=== PATIENT | female | born 1960 | race Caucasian/White ===

== ENCOUNTER → 2019-08-11 | Outpatient (CLI) | payer OTHER ==
--- NOTE | 2019-08-11 08:59 | CT ---
EXAMINATION TYPE: CT urogram wo/w con DATE OF EXAM: 08/11/2019 COMPARISON: None HISTORY: 58-year-old female with history of Bladder CA TECHNIQUE: Contiguous axial scanning of the abdomen and pelvis performed without and with IV Contrast , patient injected with 100 mL of Isovue 300. Delayed images through the kidneys and bladder were obt ained. Coronal/sagittal reconstructions performed. Reconstructions generated on a dedicated [employer] workstation. CT DLP: 3822.2 mGycm Automated exposure control for dose reduction was used. FINDINGS: Heart normal size without pleural effusion. Lung bases clear without pleural effusion. No focal liver lesion or biliary ductal dilatation. Portal venous system is patent. Cholecystectomy clips. Right adrenal gland, spleen, and pancreas appear within normal limits. 8 mm nodule of the left adrenal gland too small for accurate CT characterization. Focal lesion situated above the third portion of the duodenum in the mid abdominal retroperitoneum me asuring 2.9 cm wide and 3.6 cm cranial caudal shows fluid attenuation and no significant enhancement. Either a foregut/mesenteric duplication cyst, lymphangioma, or a duodenal diverticulum. Kidneys show no evidence for nephrolithiasis or hydronephrosis. No suspicious filling defects seen wi thin the bilateral renal collecting systems. However, the proximal third of the right ureter remains nonopacified and is not adequately evaluated. The left ureter shows no suspicious filling defect. The mid and distal third right ureter shows no suspicious filling defect. There is a 1.2 cm cortical hypodensity lateral mid to lower pole right kidney, likely cyst. No suspic ious renal mass is seen. No dilated small bowel, free fluid, or free air. A few borderline enlarged gastrohepatic ligament lymph nodes measuring up to 9 mm. Upper aortocaval lymph node measures 9 mm in the retroperitoneum. Right-sided mesenteric lymph node measures up to 7 mm on axial image 54 and coronal image 73. There is a heterogeneous soft tissue nodule in the left mesentery measuring 1.3 x 0.9 cm, and axial i mage 52. Additional small peritoneal nodule measuring 5 mm just adjacent, axial image 55. Normal appendix. Scattered [id number] stool. No pericolonic inflammatory change. On the delayed kidney images, the posterior one third of the bladder is opacified and shows no suspic ious mural based filling defect. More limited assessment of the anterior two thirds of the bladder. Uterus anteverted. Both ovaries are visualized. No abnormal fluid collection the pelvis. Bilateral external iliac chain lymph nodes are borderline in size measuring up to 9 mm on either side . Bones: Mild degenerative changes of the hips. Facet arthropathy mid to lower lumbar spine with grade 1 anterolisthesis at L4-L5. Degenerative disc disease thoracolumbar junction and upper lumbar spine. IMPRESSION: 1. NO SUSPICIOUS FILLING DEFECT WITHIN THE RENAL COLLECTING SYSTEMS. THE PROXIMAL THIRD RIGHT URETER REMAINS NONOPACIFIED AND IS NOT OPTIMALLY ASSESSED. THE REMAINDER OF THE URETERS SHOW NO SUSPICIOUS F ILLING DEFECT. 2. NO NEPHROLITHIASIS OR HYDRONEPHROSIS. A 1.2 CM CORTICAL HYPODENSITY IN THE RIGHT KIDNEY LIKELY REP RESENTS A CYST. NO SUSPICIOUS RENAL MASS. 3. THE POSTERIOR THIRD OF THE BLADDER OPACIFIES WITH CONTRAST AND SHOWS NO SUSPICIOUS MURAL-BASED LES ION. LIMITED ASSESSMENT OF THE ANTERIOR TWO THIRDS OF THE BLADDER. 4. THERE IS A SUSPICIOUS 1.3 X 0.9 CM SOFT TISSUE NODULE IN THE LEFT MESENTERY FOR WHICH METASTATIC D EPOSIT NEEDS TO BE EXCLUDED. 5. IN ADDITION, BORDERLINE ENLARGED GASTROHEPATIC LIGAMENT LYMPH NODES MEASURING 9 MM ARE NONSPECIFIC AND SHOULD ALSO BE REASSESSED AT FOLLOW-UP. 6. A FEW SCATTERED MESENTERIC LYMPH NODES AND EXTERNAL ILIAC CHAIN LYMPH NODES ARE BORDERLINE IN SIZE MEASURING UP TO 7 MM AND 9 MM, RESPECTIVELY. ATTENTION ON FOLLOW-UP.
== END ==
LOC: RADCTMAIN 06:05
PROVIDERS: ATTEND Family Medicine
DX: C67.2 Malignant neoplasm of lateral wall of bladder (principal); R59.0 Localized enlarged lymph nodes
CPT/HCPCS: 74178; 74400; Q9967

== ENCOUNTER 2022-07-14 13:24 | Observation (INO) | payer OTHER ==
[2022-07-14] MEDS ORDERED: IPRATROPIUM-ALBUTEROL 3 ML NEB INHALATION STA (14:02)
--- NOTE | 2022-07-14 14:22 | ED ---
General Adult HPI - General Chief complaint: Chest Pain Stated complaint: SOB/Chest Pain Time Seen by Provider: 07/14/22 13:55 Source: patient, RN notes reviewed, old records reviewed Mode of arrival: wheelchair Limitations: no limitations - History of Present Illness Initial comments: This is a 61-year-old female presents emergency Department complaints of chest pain and difficulty breathing intermittently for a week. Patient denies any fever chills or cough. Patient states the symptoms are exacerbated by exertion. Patient states she's also noticed more swelling in both of her legs. Patient states the pain radiates around to her back. Patient denies any nausea. Patient states she does have a history of high blood pressure but hasn't taken it for a week and she has no access to her medications. Patient denies any abdominal pain patient denies nausea or diarrhea. - Related Data Home Medications Medication Instructions Recorded Confirmed Acetaminophen Tab [Tylenol Tab] 1,000 mg PO Q6HR PRN 07/14/22 07/14/22 Albuterol Inhaler [Ventolin Hfa 2 puff INHALATION RT-QID PRN 07/14/22 07/14/22 Inhaler] Gabapentin [Neurontin] 400 mg PO TID 07/14/22 07/14/22 Losartan Potassium [Cozaar] 25 mg PO DAILY 07/14/22 07/14/22 PARoxetine HCL [Paxil] 60 mg PO DAILY 07/14/22 07/14/22 Propranolol [Inderal] 40 mg PO BID 07/14/22 07/14/22 Qvar (Unknown Dose) 1 dose INHALATION DIRECTED 07/14/22 07/14/22 Allergies Allergy/AdvReac Type Severity Reaction Status Date / Time Sulfa (Sulfonamide Allergy Rash/Hives Verified 07/14/22 17:18 Antibiotics) Review of Systems ROS Statement: Those systems with pertinent positive or pertinent negative responses have been documented in the HPI. ROS Other: All systems not noted in ROS Statement are negative. Past Medical History Past Medical History: Atrial Fibrillation, Cancer, Heart Failure, Hypertension Additional Past Medical History / Comment(s): bladder ca History of Any Multi-Drug Resistant Organisms: None Reported Past Surgical History: Cholecystectomy Additional Past Surgical History / Comment(s): left rotator cuff. bladder ca finger amputation Past Psychological History: Anxiety, Bipolar, Depression, Panic Disorder Smoking Status: Current every day smoker Past Alcohol Use History: None Reported Past Drug Use History: None Reported General Exam - General Exam Comments Initial Comments: GENERAL: Patient is well-developed and well-nourished. Patient is nontoxic and well- hydrated and is in no acute distress. ENT: Neck is soft and supple. No significant lymphadenopathy is noted. Oropharynx is clear. Moist mucous membranes. Neck has full range of motion without eliciting any pain. EYES: The sclera were anicteric and conjunctiva were pink and moist. Extraocular movements were intact and pupils were equal round and reactive to light. Eyelids were unremarkable. PULMONARY: Unlabored respirations. Good breath sounds bilaterally. No audible rales rhonchi or wheezing was noted. CARDIOVASCULAR: There is a regular rate and rhythm without any murmurs gallops or rubs. ABDOMEN: Soft and nontender with normal bowel sounds. No palpable organomegaly was noted. There is no palpable pulsatile mass. SKIN: Skin is clear with no lesions or rashes and otherwise unremarkable. NEUROLOGIC: Patient is alert and oriented x3. Cranial nerves II through XII are grossly intact. Motor and sensory are also intact. Normal speech, volume and content. Symmetrical smile. MUSCULOSKELETAL: Normal extremities with adequate strength and full range of motion. 1+ edema bilaterally LYMPHATICS: No significant lymphadenopathy is noted PSYCHIATRIC: Normal psychiatric evaluation. Limitations: no limitations Course Vital Signs 07/14/22 07/14/22 07/14/22 13:39 14:13 14:44 Temperature 98.4 F Pulse Rate 95 80 78 Respiratory 20 18 18 Rate Blood Pressure 170/89 169/91 O2 Sat by Pulse 96 96 Oximetry 07/14/22 07/14/22 14:54 15:00 Temperature Pulse Rate 80 Respiratory 17 18 Rate Blood Pressure O2 Sat by Pulse Oximetry Medical Decision Making - Medical Decision Making EKG shows sinus rhythm at [address] interval 157 cardiac is 102 QT interval is 470 QTC is 447. Patient's EKG shows no ST segment elevation or depression. Chest x-ray shows no acute abnormality. I spoke with Dr. Santana she agreed to admit the patient admitted the patient wrote admitting orders. I consult cardiology - Lab Data Result diagrams: 07/14/22 14:15 07/14/22 14:15 Lab Results 07/14/22 07/14/22 07/14/22 Range/Units 14:15 14:15 14:15 WBC 5.2 (3.8-10.6) k/uL RBC 4.19 (3.80-5.40) m/uL Hgb 13.8 (11.4-16.0) gm/dL Hct 40.0 (34.0-46.0) % MCV 95.6 (80.0-100.0) fL MCH 32.9 (25.0-35.0) pg MCHC 34.4 (31.0-37.0) g/dL RDW 13.1 (11.5-15.5) % Plt Count 142 L (150-450) k/uL MPV 7.7 Neutrophils % 53 % Lymphocytes % 35 % Monocytes % 6 % Eosinophils % 3 % Basophils % 1 % Neutrophils # 2.8 (1.3-7.7) k/uL Lymphocytes # 1.9 (1.0-4.8) k/uL Monocytes # 0.3 (0-1.0) k/uL Eosinophils # 0.2 (0-0.7) k/uL Basophils # 0.0 (0-0.2) k/uL PT 13.1 H (9.0-12.0) sec INR 1.2 H (<1.2) APTT 28.2 (22.0-30.0) sec Sodium 139 (137-145) mmol/L Potassium 3.3 L (3.5-5.1) mmol/L Chloride 104 (98-107) mmol/L Carbon Dioxide 25 (22-30) mmol/L Anion Gap 10 mmol/L BUN 11 (7-17) mg/dL Creatinine 0.70 (0.52-1.04) mg/dL Est GFR (CKD-EPI)AfAm >90 (>60 ml/min/1.73 sqM) Est GFR (CKD-EPI)NonAf >90 (>60 ml/min/1.73 sqM) Glucose 133 H (74-99) mg/dL Calcium 8.6 (8.4-10.2) mg/dL Magnesium 1.7 (1.6-2.3) mg/dL Total Bilirubin 1.6 H (0.2-1.3) mg/dL AST 180 H (14-36) U/L ALT 107 H (4-34) U/L Alkaline Phosphatase 166 H (38-126) U/L Troponin I (0.000-0.034) ng/mL NT-Pro-B Natriuret Pep pg/mL Total Protein 8.4 H (6.3-8.2) g/dL Albumin 3.9 (3.5-5.0) g/dL 07/14/22 07/14/22 Range/Units 14:15 14:15 WBC (3.8-10.6) k/uL RBC (3.80-5.40) m/uL Hgb (11.4-16.0) gm/dL Hct (34.0-46.0) % MCV (80.0-100.0) fL MCH (25.0-35.0) pg MCHC (31.0-37.0) g/dL RDW (11.5-15.5) % Plt Count (150-450) k/uL MPV Neutrophils % % Lymphocytes % % Monocytes % % Eosinophils % % Basophils % % Neutrophils # (1.3-7.7) k/uL Lymphocytes # (1.0-4.8) k/uL Monocytes # (0-1.0) k/uL Eosinophils # (0-0.7) k/uL Basophils # (0-0.2) k/uL PT (9.0-12.0) sec INR (<1.2) APTT (22.0-30.0) sec Sodium (137-145) mmol/L Potassium (3.5-5.1) mmol/L Chloride (98-107) mmol/L Carbon Dioxide (22-30) mmol/L Anion Gap mmol/L BUN (7-17) mg/dL Creatinine (0.52-1.04) mg/dL Est GFR (CKD-EPI)AfAm (>60 ml/min/1.73 sqM) Est GFR (CKD-EPI)NonAf (>60 ml/min/1.73 sqM) Glucose (74-99) mg/dL Calcium (8.4-10.2) mg/dL Magnesium (1.6-2.3) mg/dL Total Bilirubin (0.2-1.3) mg/dL AST (14-36) U/L ALT (4-34) U/L Alkaline Phosphatase (38-126) U/L Troponin I <0.012 (0.000-0.034) ng/mL NT-Pro-B Natriuret Pep 32 pg/mL Total Protein (6.3-8.2) g/dL Albumin (3.5-5.0) g/dL Disposition Clinical Impression: Chest pain, Dyspnea Disposition: ADMITTED IP TO THIS HOSP Referrals: None,Stated [Primary Care Provider] - 1-2 days Time of Disposition: 17:40
[2022-07-14 14:35] LABS: Basophils % (A) 1 %; Eosinophils # (A) 0.2 k/uL (0-0.7); Eosinophils % (A) 3 %; HGB 13.8 gm/dL (11.4-16.0); Lymphocytes # (A) 1.9 k/uL (1.0-4.8); Lymphocytes % (A) 35 %; MCH 32.9 pg (25.0-35.0); MCHC 34.4 g/dL (31.0-37.0); MCV 95.6 fL (80.0-100.0); Mean Platelet Volume 7.7; Monocytes # (A) 0.3 k/uL (0-1.0); Monocytes % (A) 6 %; Neutrophils # (A) 2.8 k/uL (1.3-7.7); Neutrophils % (A) 53 %; Platelet Count 142 k/uL (150-450); RBC 4.19 m/uL (3.80-5.40); RDW 13.1 % (11.5-15.5); WBC 5.2 k/uL (3.8-10.6)
[2022-07-14 14:45] LABS: ALT 107 U/L (4-34); AST 180 U/L (14-36); African American GFR (CKD) >90 (>60 ml/min/1.73 sqM); Albumin 3.9 g/dL (3.5-5.0); Alkaline Phosphatase 166 U/L (38-126); Anion Gap 10 mmol/L; Blood Urea Nitrogen 11 mg/dL (7-17); Calcium 8.6 mg/dL (8.4-10.2); Carbon Dioxide 25 mmol/L (22-30); Chloride 104 mmol/L (98-107); Glucose 133 mg/dL (74-99); Magnesium 1.7 mg/dL (1.6-2.3); Non-African American GFR(CKD) >90 (>60 ml/min/1.73 sqM); Potassium 3.3 mmol/L (3.5-5.1); Sodium 139 mmol/L (137-145); Total Bilirubin 1.6 mg/dL (0.2-1.3); Total Protein 8.4 g/dL (6.3-8.2)
--- NOTE | 2022-07-14 14:48 | XR ---
EXAMINATION TYPE: XR chest 2V DATE OF EXAM: 07/14/2022 COMPARISON: Chest x-ray 07/23/2012 HISTORY: Difficulty breathing, chest pain and shortness of breath TECHNIQUE: Frontal and lateral views of the chest are obtained. FINDINGS: There is no focal air space opacity, pleural effusion, or pneumothorax seen. The cardiac silhouette size is within normal limits. There are overlying leads. Linear probable scarring present at the left costophrenic angle level. The osseous structures are intact. IMPRESSION: There may be some minimal basilar atelectasis or scarring
[2022-07-14 14:55] LABS: INR 1.2 (<1.2); Partial Thromboplastin Time 28.2 sec (22.0-30.0); Prothrombin Time 13.1 sec (9.0-12.0)
[2022-07-14 15:36] VITALS: RESP 18
--- NOTE | 2022-07-14 16:28 | US ---
EXAMINATION TYPE: US gallbladder DATE OF EXAM: 07/14/2022 COMPARISON: NONE CLINICAL HISTORY: 61-year-old female Elevated liver enzymes. Elevated LFT's, GB removed TECHNIQUE: Multiple sonographic images of the right upper quadrant are obtained. FINDINGS: EXAM MEASUREMENTS: Liver Length: 23.4 cm CBD: 0.5 cm Right Kidney: 11.5 x 3.8 x 4.6 cm Pancreas: Suboptimal visualization of portions of the pancreatic body and tail due to shadowing from bowel gas. Liver: Enlarged, heterogeneous, nodular contour . No focal lesion seen. Gallbladder: Surgically absent Evidence for sonographic Ellis's sign: No CBD: wnl, post yana Right Kidney: wnl IMPRESSION: 1. Heterogeneous and enlarged liver (measuring 23.4 cm). Nodular contour may reflect underlying cirrh osis. Further workup recommended. 2. Status post cholecystectomy. No biliary duct dilatation.
[2022-07-14] MEDS ORDERED: ASPIRIN 81 MG PO STA (17:40)
[2022-07-14] MEDS ORDERED: NITROGLYCERIN SL TABS 0.4 MG TAB SUBLINGUAL PRN (17:40)
[2022-07-14] MEDS: NITROGLYCERIN OINT 1 INCH/GM PACKET TOPICAL SCH (18:28)
[2022-07-14] MEDS ORDERED: POTASSIUM CHLORIDE ER 20 MEQ TAB.ER PO STA (20:43)
[2022-07-15 00:21] LABS: Hepatitis A Antibody IgM Nonreactive (Nonreactive); Hepatitis B Core IgM Nonreactive (Nonreactive); Hepatitis B Surface Antigen Nonreactive (Nonreactive); Hepatitis C IgG Antibody Nonreactive (Nonreactive)
[2022-07-15] MEDS: NITROGLYCERIN OINT 1 INCH/GM PACKET TOPICAL SCH ×3 (01:42→11:54)
--- NOTE | 2022-07-15 03:03 | P.HPIM ---
History of Present Illness H&P Date: 07/14/22 The patient is a 61-year-old female with a PMH of hypertension and hyper lipidemia who presents to the emergency room with complaints of chest pain. The patient reports that she's been extremity intermittent substernal and left-sided chest discomfort for the past several months which recently worsened 2 days ago. She reports pain was 8 out of 10 on maximal intensity, lasting for a few minutes at a time and then resolving spontaneously. Denied experiencing lower extremity swelling, pain. Denied fever, chills, cough, nausea, vomiting, abdominal pain, diarrhea. EKG emergency room revealed sinus rhythm at [address]/T-wave changes noted as reviewed by me. Chest x-ray was u nremarkable. Right upper quadrant ultrasound revealed a nodular liver, concerning for cirrhosis. Laboratory evaluation was remarkable for platelet 142, total bilirubin 1.6, AST 180, ALT 107, troponin less than 0.012. Review of systems: Pertinent positives and negatives as discussed in HPI, a complete review of systems was performed and all other systems are negative. Physical examination: General: non toxic, no distress, appears at stated age, morbidly obese Derm: no unusual rashes/lesions, warm Head: atraumatic, normocephalic, symmetric Eyes: EOMI, no lid lag, anicteric sclera, pupils equal round reactive to light ENT: Nose and ears atraumatic Neck: No cervical lymphadenopathy, trachea midline, supple Mouth: no lip lesion, mucus membranes moist Cardiovascular: S1S2 reg, no murmur, positive dorsalis pedis pulse bilateral, no edema Lungs: CTA bilateral, no rhonchi, no rales, no accessory muscle use Abdominal: soft, nontender to palpation, no guarding Ext: muscle strength 5 out of 5 in all 4 extremities grossly, no gross muscle atrophy, no contractures, Neuro: CN II-XI grossly intact, no gross focal neuro deficits Psych: Alert, oriented, appropriate affect Assessment/plan Chest pain, rule out ACS -Cardiology consult -Cardiac monitoring -Trend troponin -Continue with aspirin, statin Abnormal LFTs with liver enlargement and nodularity -Hepatitis panel unremarkable -Patient denies history of alcohol abuse -Patient may have POST releated cirrhosis -GI service currently unavailable in the hospital -Would recommend outpatient follow-up Hypokalemia -Replace and monitor Thrombocytopenia -Unclear etiology -Monitor for now DVT prophylaxis -Heparin subcu The patient is admitted with an anticipated less than 2 midnight stay for evaluation of chest pain CODE STATUS: Full Code Discussed with: Patient Anticipated discharge date: In a.m. Anticipated discharge place: Home Past Medical History Past Medical History: Atrial Fibrillation, Cancer, Heart Failure, Hypertension Additional Past Medical History / Comment(s): bladder ca History of Any Multi-Drug Resistant Organisms: None Reported Past Surgical History: Cholecystectomy Additional Past Surgical History / Comment(s): left rotator cuff. bladder ca finger amputation Past Psychological History: Anxiety, Bipolar, Depression, Panic Disorder Smoking Status: Current every day smoker Past Alcohol Use History: None Reported Past Drug Use History: None Reported - Past Family History Father Family Medical History: Hypertension Medications and Allergies Home Medications Medication Instructions Recorded Confirmed Type Acetaminophen Tab [Tylenol Tab] 1,000 mg PO Q6HR PRN 07/14/22 07/14/22 History Albuterol Inhaler [Ventolin Hfa 2 puff INHALATION RT-QID PRN 07/14/22 07/14/22 History Inhaler] Gabapentin [Neurontin] 400 mg PO TID 07/14/22 07/14/22 History Losartan Potassium [Cozaar] 25 mg PO DAILY 07/14/22 07/14/22 History PARoxetine HCL [Paxil] 60 mg PO DAILY 07/14/22 07/14/22 History Propranolol [Inderal] 40 mg PO BID 07/14/22 07/14/22 History Qvar (Unknown Dose) 1 dose INHALATION DIRECTED 07/14/22 07/14/22 History Allergies Allergy/AdvReac Type Severity Reaction Status Date / Time Sulfa (Sulfonamide Allergy Rash/Hives Verified 07/14/22 17:18 Antibiotics) Physical Exam Vitals: Vital Signs Temp Pulse Resp BP Pulse Ox 07/14/22 18:00 79 18 186/96 96 07/14/22 15:00 18 07/14/22 14:54 80 17 07/14/22 14:44 78 18 07/14/22 14:13 80 18 169/91 96 07/14/22 13:39 98.4 F 95 20 170/89 96 Intake and Output 07/14/22 07/14/22 07/14/22 06:59 14:59 22:59 Other: Weight 108.862 kg Results CBC & Chem 7: 07/14/22 14:15 07/14/22 14:15 Labs: Abnormal Lab Results - Last 24 Hours (Table) 07/14/22 07/14/22 07/14/22 Range/Units 14:15 14:15 14:15 Plt Count 142 L (150-450) k/uL PT 13.1 H (9.0-12.0) sec INR 1.2 H (<1.2) Potassium 3.3 L (3.5-5.1) mmol/L Glucose 133 H (74-99) mg/dL Total Bilirubin 1.6 H (0.2-1.3) mg/dL AST 180 H (14-36) U/L ALT 107 H (4-34) U/L Alkaline Phosphatase 166 H (38-126) U/L Total Protein 8.4 H (6.3-8.2) g/dL
[2022-07-15 04:54] VITALS: TEMP 97.8
--- NOTE | 2022-07-15 07:32 | P.CRDCN ---
History of Present Illness History of present illness: HISTORY OF PRESENTING ILLNESS Patient is a pleasant 61-year-old female with history of hyperlipidemia, hypertension, fall 2 years ago with number of back issues, tobacco abuse who presents secondary to chest pain. She states she has been having chest pain for the last 3 months. She did have prior workup in [place] area with stress test done eventual heart catheterization 8 years ago with reportedly mild plaquing however no significant blockages and no stents. She denies any trauma however now has been having sharp pain all over the left side of her chest which will come and go can occur when she is sitting and can't occur when she is active. She does have some associated shortness of breath. She also states a month ago she woke up and had issues moving her left arm and numbness and is asking if she may have had a stroke back then. She denies any change in medications. Denies any associated nausea or diaphoresis. EKG shows sinus rhythm, normal axis, no significant ST or T-wave abnormalities. Blood work shows potassium 3.3, bilirubin 1.6, AST 180, LT107, troponin negative 3, proBNP 32. REVIEW OF SYSTEMS At the time of my exam: CONSTITUTIONAL: Denies fever or chills. CARDIOVASCULAR: +chest pain, +shortness of breath, no orthopnea, PND or palpitations. RESPIRATORY: Denies cough. GASTROINTESTINAL: Denies abdominal pain, diarrhea, constipation, nausea or vomiting. MUSCULOSKELETAL: Denies myalgias. NEUROLOGIC: Denies numbness, tingling or weakness. ENDOCRINE: Denies fatigue, weight change, polydipsia or polyurina. GENITOURINARY: Denies burning, hematuria or urgency with micturation. HEMATOLOGIC: Denies history of anemia or bleeding. PHYSICAL EXAMINATION Vital signs reviewed. CONSTITUTIONAL: No apparent distress. HEENT: Head is normocephalic. Pupils are equal, round. Sclerae anicteric. Mucous membranes of the mouth are moist. No JVD. No carotid bruit. CHEST EXAMINATION: Lungs are clear to auscultation. No chest wall tenderness is noted on palpation or with deep breathing. HEART EXAMINATION: Regular rate and rhythm. S1, S2 heard. No murmurs, gallops or rub. ABDOMEN: Soft, nontender. Positive bowel sounds. EXTREMITIES: 2+ peripheral pulses, no lower extremity edema and no calf tenderness. NEUROLOGIC EXAMINATION: Patient is awake, alert and oriented x3. ASSESSMENT 1. Atypical chest pain however sometimes associated with exertion. Rule out cardiac as well as any PE. May be related to back injury and a skeletal skeletal 2. Tobacco abuse 3. Left arm numbness for one month questional radiculopathy versus neurogenic 4. Hypertension 5. AST, LT elevation 6. Trace lower extremity edema likely venous insufficiency with normal BNP PLAN Check d-dimer and if abnormal check CTA for completeness given some atypical/pleuritic chest pain and some shortness breath. Additionally check 2-D echo as well as stress echo to evaluate for any inducible ischemia. May be musculoskeletal in nature and patient additionally having left arm numbness question for radiculopathy versus prior neurologic event. If d-dimer, echo and stress test unrevealing patient may be discharged home. Discussed tobacco cessation. Past Medical History Past Medical History: Atrial Fibrillation, Cancer, Heart Failure, Hypertension Additional Past Medical History / Comment(s): bladder ca History of Any Multi-Drug Resistant Organisms: None Reported Past Surgical History: Cholecystectomy Additional Past Surgical History / Comment(s): left rotator cuff. bladder ca finger amputation Past Anesthesia/Blood Transfusion Reactions: No Reported Reaction Past Psychological History: Anxiety, Bipolar, Depression, Panic Disorder Smoking Status: Current every day smoker Past Alcohol Use History: None Reported Past Drug Use History: None Reported - Past Family History Father Family Medical History: Hypertension Medications and Allergies Home Medications Medication Instructions Recorded Confirmed Type Acetaminophen Tab [Tylenol Tab] 1,000 mg PO Q6HR PRN 07/14/22 07/14/22 History Albuterol Inhaler [Ventolin Hfa 2 puff INHALATION RT-QID PRN 07/14/22 07/14/22 History Inhaler] Gabapentin [Neurontin] 400 mg PO TID 07/14/22 07/14/22 History Losartan Potassium [Cozaar] 25 mg PO DAILY 07/14/22 07/14/22 History PARoxetine HCL [Paxil] 60 mg PO DAILY 07/14/22 07/14/22 History Propranolol [Inderal] 40 mg PO BID 07/14/22 07/14/22 History Qvar (Unknown Dose) 1 dose INHALATION DIRECTED 07/14/22 07/14/22 History Allergies Allergy/AdvReac Type Severity Reaction Status Date / Time Sulfa (Sulfonamide Allergy Rash/Hives Verified 07/14/22 17:18 Antibiotics) Physical Exam Vitals: Vital Signs Temp Pulse Resp BP BP Pulse Ox 07/15/22 02:00 97.8 F 18 123/67 93 L 07/14/22 22:00 97.7 F 18 125/73 95 07/14/22 20:59 97.6 F 72 18 134/69 100 07/14/22 18:00 79 18 186/96 96 07/14/22 15:00 18 07/14/22 14:54 80 17 07/14/22 14:44 78 18 07/14/22 14:13 80 18 169/91 96 07/14/22 13:39 98.4 F 95 20 170/89 96 Intake and Output 07/14/22 07/15/22 07/15/22 22:59 06:59 14:59 Other: # Voids 0 1 Weight 108.862 kg Results 07/14/22 14:15 07/14/22 14:15 Cardiac Enzymes 07/14/22 07/14/22 07/14/22 Range/Units 14:15 14:15 18:15 AST 180 H (14-36) U/L Troponin I <0.012 <0.012 (0.000-0.034) ng/mL 07/14/22 Range/Units 20:43 AST (14-36) U/L Troponin I <0.012 (0.000-0.034) ng/mL Coagulation 07/14/22 Range/Units 14:15 PT 13.1 H (9.0-12.0) sec APTT 28.2 (22.0-30.0) sec CBC 07/14/22 Range/Units 14:15 WBC 5.2 (3.8-10.6) k/uL RBC 4.19 (3.80-5.40) m/uL Hgb 13.8 (11.4-16.0) gm/dL Hct 40.0 (34.0-46.0) % Plt Count 142 L (150-450) k/uL Comprehensive Metabolic Panel 07/14/22 Range/Units 14:15 Sodium 139 (137-145) mmol/L Potassium 3.3 L (3.5-5.1) mmol/L Chloride 104 (98-107) mmol/L Carbon Dioxide 25 (22-30) mmol/L BUN 11 (7-17) mg/dL Creatinine 0.70 (0.52-1.04) mg/dL Glucose 133 H (74-99) mg/dL Calcium 8.6 (8.4-10.2) mg/dL AST 180 H (14-36) U/L ALT 107 H (4-34) U/L Alkaline Phosphatase 166 H (38-126) U/L Total Protein 8.4 H (6.3-8.2) g/dL Albumin 3.9 (3.5-5.0) g/dL Current Medications Generic Name Dose Route Start Last Admin Trade Name Freq PRN Reason Stop Dose Admin Aspirin 325 mg 07/15/22 09:00 Aspirin 325 Mg Tab PO DAILY NIRANJAN Atorvastatin Calcium 80 mg 07/15/22 21:00 Atorvastatin 80 Mg Tab PO HS [facility] Heparin Sodium (Porcine) 5,000 unit 07/15/22 08:00 Heparin Sodium,Porcine/Pf 5,000 Unit/0.5 Ml Syringe SQ Q8HR [facility] Nitroglycerin 0.4 mg 07/14/22 17:40 Nitroglycerin Sl Tabs 0.4 Mg Tab SUBLINGUAL Q5M PRN Chest Pain Nitroglycerin 1 inch 07/14/22 18:00 07/15/22 05:22 Nitroglycerin Oint 1 Inch/Gm Packet TOPICAL 1 inch Q6HR [facility] Administration Intake and Output 07/14/22 07/15/22 07/15/22 22:59 06:59 14:59 Other: # Voids 0 1 Weight 108.862 kg 07/14/22 14:15 07/14/22 14:15
[2022-07-15] MEDS ORDERED: HEPARIN SODIUM,PORCINE/PF 5,000 UNIT/0.5 ML SYRINGE SQ SCH (08:00)
[2022-07-15] MEDS ORDERED: ASPIRIN 325 MG TAB PO SCH (09:00)
[2022-07-15 09:38] VITALS: BP 141/73; PULSE 67
[2022-07-15 10:34] LABS: ALT 95 U/L (8-44); AST 153 U/L (13-35); African American GFR (CKD) 107.6 (60.0-200.0); Albumin 3.2 g/dL (3.8-4.9); Albumin/Globulin Ratio 0.73 (1.60-3.17); Alkaline Phosphatase 141 U/L (41-126); BUN/Creat Ratio 14.86 Ratio (12.00-20.00); Blood Urea Nitrogen 10.4 mg/dL (9.0-27.0); Calcium 8.5 mg/dL (8.7-10.3); Chloride 108 mmol/L (96-109); Chol/HDL Ratio 5.38 Ratio; Globulin 4.4 g/dL (1.6-3.3); Glucose 105 mg/dL (70-110); Non-African American GFR(CKD) 92.9 (60.0-200.0); Potassium 3.8 mmol/L (3.5-5.5); Sodium 141 mmol/L (135-145); Total Protein 7.6 g/dL (6.2-8.2)
[2022-07-15] MEDS ORDERED: DOBUTamine DRIP for NUC MED 500 MG in DEXTROSE/WATER 1 250ML.BAG IV PRN (10:40)
[2022-07-15] MEDS ORDERED: DOBUTamine DRIP for NUC MED 500 MG/250 ML BAG IV ONE (11:10)
--- NOTE | 2022-07-15 13:25 | CA ---
Dobutamine Stress Echocardiogram Report Margret Mahoney Age: 61 Gender: F : 1960 Exam Date: 07/15/2022 10:48 Exam Location: [facility] Ordering Physician: Rory Culver DO Referring Physician: BRENDA, Principal Statistical Programmer: MONICA Technologist: Ht (in): 64 Wt (lb): 240 Procedure CPT: Indication: re: CP ICD-9 Codes: Rhythm: Patient History: Cardiac Medications: Medications in past 24 hours: Contrast: Lumason Total Dose (mL): 5 Stress Results Protocol: Dobutamine Peak Dose (???g/kg/min): 30 Duration (min:sec): Atropine:(mg) Target HR: 134 Double Product: [id number] Resting HR: 69 Resting BP: 154 / 80 Peak HR: 149 Peak BP: 222 / 47 Max Predicted HR: 158 94 % Max Predicted HR Stress Summary: BP Response: Reason for Termination: Cardiac Symptoms: ECG Analysis Resting EKG: Stress EKG: Arrhythmia: Echo Analysis Base Echo Analysis: Low Echo Anaylsis: Peak Echo Analysis: Recovery Echo: MEASUREMENTS (Male/Female) Normal Values CONCLUSIONS Patient underwent dobutamine stress echo with infusion of dobutamine into Stage 3 for a total of 9 minutes. Patient's maximum heart rate was 149 which represented 94 % age-predicted maximum heart rate. Stress EKG portion: At baseline patient's EKG showed normal sinus rhythm, normal axis, no significant ST or T wave abnormalities. At peak dobutamine infusion, EKG showed no significant change from baseline. Stress echo portion: 2-D echocardiogram was performed in the parasternal long, personal short, apical 2 and apical four-chamber views at rest, low-dose, peak infusion and in recovery. At baseline, echocardiogram showed left ventricular ejection fraction 55% without wall motion abnormalities. With peak infusion, echocardiogram shows improvement in left ventricular ejection fraction, increase contractility, decrease in left ventricular end systolic dimension without wall motion abnormalities consistent with a normal response to dobutamine. Conclusions: 1. Normal stress EKG and echo response to dobutamine infusion without any evidence of inducible ischemia. Dr. Rory Culver DO (Electronically Signed) Final Date: 15 July 2022 13:24
--- NOTE | 2022-07-15 14:38 | CT ---
EXAMINATION TYPE: CT chest angio for PE DATE OF EXAM: 07/15/2022 COMPARISON: Shortness of breath HISTORY: concern for PE, SOB, cough CT DLP: 1331 mGycm Automated exposure control for dose reduction was used. CONTRAST: CT Chest for pulmonary embolism performed with with IV Contrast, patient injected with 100mL mL of Is ovue 370. FINDINGS: LUNGS: Subpleural nodule axial image #80 right upper lobe measuring 3 mm. No consolidation or pleural effusion. No interstitial edema. MEDIASTINUM: There is suboptimal enhancement of the pulmonary artery and its branches, there is nondi agnostic assessment for pulmonary embolism. There are no greater than 1 cm hilar or mediastinal lymp h nodes. No pericardial effusion is seen. Aorta of normal caliber. OTHER: Postcholecystectomy changes. Hypertrophic and degenerative change of the spine. Spleen measur es 13 cm. Related for mild splenomegaly. IMPRESSION: 1. Suboptimal enhancement pulmonary arteries with only limited exam for pulmonary embolism. Grossly n o right main right or left pulmonary arterial embolism suspected. Given limitation exam correlate wit h VQ scan as clinically warranted. 2. No acute infiltrate. 3. Subpleural 3 mm pulmonary nodule axial image 8 right upper lobe too small to characterize but like ly benign.
--- NOTE | 2022-07-15 15:21 | P.DS ---
Providers Date of admission: 07/14/22 17:41 Expected date of discharge: 07/15/22 Attending physician: Carmen Santana DO Consults: 07/14/22 17:41 Consult Physician Urgent Consulting Provider: [facility] Consult Reason/Comments: Chest pain, dyspnea Do you want consulting provider notified?: Yes Primary care physician: Stated None Hospital Course: Discharge Diagnosis: Atypical acute chest pain Transaminitis Possible POST cirrhosis Hypokalemia Elevated d-dimer Thrombocytopenia Hospital Course: [id number] female with history of hypertension and dyslipidemia presented with complaints of chest pain. EKG showed normal sinus rhythm with no ST-T wave changes. Chest x-ray was grossly unremarkable. Troponin were negative. Cardiology was consulted. Echocardiogram at rest showed LVEF of 55% without any wall motion abnormalities. She had normal stress EKG and echo response to dobutamine infusion without any evidence of inducible ischemia. She had mildly elevated d-dimer at 0.8. CTA PE study was supple optimal but no right mean or left main pulmonary artery embolism was seen. Patient is asymptomatic, and VQ scan was not further warranted. She was also found to have subpleural 3 mm pulmonary nodule in the right upper lobe small to characterize but likely benign. On admission she also had elevated LFTs, her hepatitis panel was neg ative. Right upper quadrant ultrasound showed heterogenous and large liver, nodular contour may reflect underlying cirrhosis. She is status post cholecystectomy. Patient will require outpatient follow for possible cirrhosis, and biannual liver ultrasounds. Mild thrombocytopenia likely in the setting of liver disease. Her Tylenol was decreased to half the dose. Patient seen and examined at bedside. Vital signs reviewed and stable. General: nontoxic, no distress, appears at stated age Derm: warm, dry Head: atraumatic, normocephalic, symmetric Eyes: EOMI, no lid lag, anicteric sclera Mouth: no lip lesion, mucus membranes moist Cardiovascular: S1S2 reg, no murmur Lungs: CTA bilateral, no rhonchi, no rales , no accessory muscle use Abdominal: soft, nontender to palpation, no guarding, no appreciable organomegaly Ext: no gross muscle atrophy, no edema, no contractures Neuro: CN II-XI grossly intact, no focal neuro deficits Psych: Alert, oriented, appropriate affect A total of 37 minutes of time were spent preparing this complex discharge summary. Patient was discharged on 07/15/22 at 15:14. Patient Condition at Discharge: Stable Plan - Discharge Summary Discharge Rx Participant: No New Discharge Prescriptions: Continue Propranolol [Inderal] 40 mg PO BID PARoxetine HCL [Paxil] 60 mg PO DAILY Albuterol Inhaler [Ventolin Hfa Inhaler] 2 puff INHALATION RT-QID PRN PRN Reason: Shortness Of Breath Losartan Potassium [Cozaar] 25 mg PO DAILY Gabapentin [Neurontin] 400 mg PO TID Qvar (Unknown Dose) 1 dose INHALATION DIRECTED Changed Acetaminophen Tab [Tylenol] 500 mg PO Q6HR PRN #0 PRN Reason: Pain Or Fever > 100.5 Discharge Medication List Albuterol Inhaler [Ventolin Hfa Inhaler] 2 puff INHALATION RT-QID PRN 07/14/22 [History] Gabapentin [Neurontin] 400 mg PO TID 07/14/22 [History] Losartan Potassium [Cozaar] 25 mg PO DAILY 07/14/22 [History] PARoxetine HCL [Paxil] 60 mg PO DAILY 07/14/22 [History] Propranolol [Inderal] 40 mg PO BID 07/14/22 [History] Qvar (Unknown Dose) 1 dose INHALATION DIRECTED 07/14/22 [History] Acetaminophen Tab [Tylenol] 500 mg PO Q6HR PRN #0 07/15/22 [Rx] Follow up Appointment(s)/Referral(s): None,Stated [Primary Care Provider] - 1-2 days
[2022-07-15 16:21] LABS: HCT 39.8 % (37.2-46.3); MCH 31.9 pg (27.0-32.0); MCHC 32.7 g/dL (32.0-37.0); MCV 97.5 fL (80.0-97.0); Mean Platelet Volume 10.3 fL (9.5-12.2); NRBC Per 100 WBC 0 /100 WBCS (0.0-0.0); Platelet Count 105 X 10*3/uL (140-440); RBC 4.08 X 10*6/uL (4.10-5.20); RBC Morphology NORMAL; RDW 13.3 % (11.5-14.5); WBC 5.07 X 10*3/uL (4.50-10.00)
[2022-07-15] MEDS ORDERED: ATORVASTATIN 80 MG TAB PO SCH (21:00)
--- NOTE | 2022-07-16 07:17 | CA ---
Transthoracic Echo Report Name: Margret Mahoney Age: 61 Gender: F : 1960 Exam Date: 07/15/2022 10:39 Exam Location: [facility] Ht (in): 64 Wt (lb): 240 Ordering Physician: Rory Culver DO Attending/Referring Phys: Data Storage Specialist Kimmy Medel RDCS Procedure CPT: Indications: re: CP Cardiac Hx: Technical Quality: Fair Contrast 1: Total Dose (mL): Contrast 2: Total Dose (mL): MEASUREMENTS (Male / Female) Normal Values 2D ECHO LV Diastolic Diameter PLAX 4.3 cm 4.2 - 5.9 / 3.9 - 5.3 cm LV Systolic Diameter PLAX 2.6 cm IVS Diastolic Thickness 1.2 cm 0.6 - 1.0 / 0.6 - 0.9 cm LVPW Diastolic Thickness 1.3 cm 0.6 - 1.0 / 0.6 - 0.9 cm LV Relative Wall Thickness 0.6 LA Volume 49.3 cm??? 18 - 58 / 22 - 52 cm??? M-MODE Aortic Root Diameter MM 2.4 cm LA Systolic Diameter MM 4.8 cm LA Ao Ratio MM 2.0 AV Cusp Separation MM 1.6 cm DOPPLER AV Peak Velocity 135.2 cm/s AV Peak Gradient 7.3 mmHg LVOT Peak Velocity 146.4 cm/s LVOT Peak Gradient 8.6 mmHg MV Area PHT 4.0 cm??? Mitral E Point Velocity 78.0 cm/s Mitral A Point Velocity 95.2 cm/s Mitral E to A Ratio 0.8 MV Deceleration Time 191.3 ms TR Peak Velocity 277.2 cm/s TR Peak Gradient 30.7 mmHg Right Ventricular Systolic Press 35.7 mmHg FINDINGS Left Ventricle Mildly increased left ventricular wall thickness. Normal left ventricular systolic function with no obvious regional wall motion abnormalities. Left ventricular ejection fraction is estimated at 55-60 %. Right Ventricle Right ventricle not well visualized. Mild pulmonary hypertension. Right Atrium Right atrium not well visualized. Left Atrium Normal left atrial size. No evidence for an atrial septal defect. Normal left atrial size. Mitral Valve Structurally normal mitral valve. No mitral stenosis, regurgitation or prolapse. Aortic Valve Trileaflet aortic valve. No aortic stenosis. No aortic regurgitation. Tricuspid Valve Structurally normal tricuspid valve. Mild tricuspid regurgitation. Pulmonic Valve Trace pulmonic regurgitation. Pericardium No pericardial effusion. Aorta Normal size aortic root and proximal ascending aorta. CONCLUSIONS Mild LVH Normal left ventricular ejection fraction 55-60% RVSP 35 Mild tricuspid regurgitation No pericardial effusion Previewed by: Dr. Rory Culver DO (Electronically Signed) Final Date: 16 July 2022 07:17
== END 2022-07-15 16:02 ==
LOC: EC 13:24 → 6NMEDSUR 17:41
PROVIDERS: ADMIT Internal Medicine; ATTEND Internal Medicine
DX: R07.89 Other chest pain (principal); E87.6 Hypokalemia; D69.59 Other secondary thrombocytopenia; I48.91 Unspecified atrial fibrillation; I11.0 Hypertensive heart disease with heart failure; E78.5 Hyperlipidemia, unspecified; I50.9 Heart failure, unspecified; F31.9 Bipolar disorder, unspecified; I27.20 Pulmonary hypertension, unspecified; F41.0 Panic disorder [episodic paroxysmal anxiety]; F32.A Depression, unspecified; R91.1 Solitary pulmonary nodule; F17.200 Nicotine dependence, unspecified, uncomplicated; R16.0 Hepatomegaly, not elsewhere classified; E66.01 Morbid (severe) obesity due to excess calories; R79.89 Other specified abnormal findings of blood chemistry; I07.1 Rheumatic tricuspid insufficiency; R16.1 Splenomegaly, not elsewhere classified; I37.1 Nonrheumatic pulmonary valve insufficiency; Z79.899 Other long term (current) drug therapy; Z88.2 Allergy status to sulfonamides; Z85.51 Personal history of malignant neoplasm of bladder; Z90.49 Acquired absence of other specified parts of digestive tract; Z89.029 Acquired absence of unspecified finger(s); Z82.49 Family history of ischemic heart disease and other diseases of the circulatory system; Z68.41 Body mass index [BMI] 40.0-44.9, adult
CPT/HCPCS: 96372; 99285; 36415 ×2; 94640; 93005; 93306; 93351; 85379; 83880; 80061; 80053 ×2; 80074; 83735; 84484; 85025; 85027; 85610; 85730; 71046; 76705; 71275; G0378 ×2; J1250; Q9950; Q9967; J1644

== ENCOUNTER → 2023-02-22 | Outpatient (CLI) | payer MEDICARE, OTHER ==
--- NOTE | 2023-02-22 15:33 | MR ---
EXAMINATION TYPE: MR angio abdomen wo/w con DATE OF EXAM: 02/22/2023 COMPARISON: None HISTORY: Abdomen pain, hx of cancer CONTRAST: Standard multiplanar, multisequence MRI departmental protocol images were obtained without contrast a nd with 10 mL intravenous Gadavist gadolinium contrast. FINDINGS: The abdominal aorta is of normal caliber with mild scattered atheromatous change. Proximal abdominal aorta measures 2.1 cm with the midportion measuring 1.7 cm and distally 1.2 cm. Branch vessels are pa tent including the celiac and SMA branches. Bilateral renal arteries are patent as well. Iliac vessel s are of normal caliber bilaterally without evidence for aneurysm or stenosis. IMPRESSION: No evidence for aneurysm or significant stenosis as noted above.
== END | disposition home or self-care (01) ==
LOC: RADMRIMAIN 13:16
PROVIDERS: ATTEND Family Medicine
DX: R93.89 Abnormal findings on diagnostic imaging of other specified body structures (principal)
CPT/HCPCS: C8902; A9585; 74185

== ENCOUNTER → 2023-03-08 | Outpatient (CLI) | payer MEDICARE, OTHER ==
--- NOTE | 2023-03-17 18:44 | MR ---
EXAMINATION TYPE: MR angio abdomen wo/w con DATE OF EXAM: 03/08/2023 COMPARISON: CT 01/23/2023 HISTORY: 62-year-old female R93.89, abnormal findings on previous imaging Technique: Multiplanar, multisequence images of the abdomen were obtained before and after administra tion of 10 mL intravenous Gadavist gadolinium contrast. FINDINGS: Multiple time points were utilized in order to optimize the venous phase. Images are limited for purp oses of obtaining subtraction images. Spleen incidentally noted enlarged at 15.2 cm and liver enlarged at 22.2 cm. The left gonadal vein is large in caliber and has normal drainage into the left renal vein. The right renal vein is also large in caliber but with prominent associated varices along its mid to lower aspect. There is no occlusion or filling defect identified to suggest thrombosis on either side . We note relative narrowing of the left renal vein as it crosses between the SMA and aorta. Secondary poor postcontrast enhancement along this segment. An additional vessel drains into the left renal vein from a superior approach, likely collateral flow related to underlying liver disease. IMPRESSION: 1. Large caliber to the bilateral gonadal veins which remain patent. These are nonspecific findings b ut may be seen in the setting of pelvic congestion syndrome. 2. Collateralization due to the patient's underlying liver disease and extra drainage into the left r enal vein may also contribute to increased venous pressures and some venous insufficiency within the left gonadal vein. 3. The right gonadal vein demonstrates associated varices along its mid to lower aspect, possibly seq uela of a prior thrombosis. 4. Narrowing of the left renal vein as it courses between the aorta and SMA. This may be contributing to a relative stenosis of the vessel. 5. Hepatosplenomegaly.
== END | disposition home or self-care (01) ==
LOC: RADMRIMAIN 11:34
PROVIDERS: ATTEND Family Medicine
DX: I87.2 Venous insufficiency (chronic) (peripheral) (principal); R16.2 Hepatomegaly with splenomegaly, not elsewhere classified; K76.89 Other specified diseases of liver; R93.89 Abnormal findings on diagnostic imaging of other specified body structures; Z86.718 Personal history of other venous thrombosis and embolism
CPT/HCPCS: 74185

== ENCOUNTER 2023-05-10 09:58 | Day surgery (SDC) | payer MEDICARE, OTHER ==
[2023-05-03 09:13] VITALS: BMI 41.8
[~2023-05-10 09:58] MED LIST: ALPRAZolam 0.25 MG TAB PO PRN; ALPRAZolam 0.5 MG TAB PO PRN; ASPIRIN 325 MG TAB PO ONE; ATORVASTATIN 80 MG TAB PO ONE; HEPARIN SODIUM,PORCINE (1 ML) 2,500 UNIT in SODIUM CHLORIDE 0.9% 250 ML IRRIGATION PRN; HEPARIN SODIUM,PORCINE 10,000 UNIT in SODIUM CHLORIDE 0.9% 1,000 ML IRRIGATION PRN; NITROGLYCERIN SL TABS 0.4 MG TAB SUBLINGUAL PRN; SODIUM CHLORIDE 0.9% 1,000 ML in EMPTY BAG 1 BAG IV SCH
[2023-05-10 11:06] VITALS: TEMP 98.4
[2023-05-10] MEDS ORDERED: VERAPAMIL 2.5 MG/ML 2 ML AMP ONE (11:33)
[2023-05-10] MEDS ORDERED: MIDAZOLAM 2 MG/2 ML VIAL IVP ONE (11:38)
[2023-05-10] MEDS ORDERED: LIDOCAINE 1% INJ 10MG/ML (5 ML VIAL-PF) SQ ONE (11:39)
[2023-05-10] MEDS ORDERED: VERAPAMIL SYRINGE (5 MG/10 ML) INTRAARTER ONE (11:40)
[2023-05-10] MEDS ORDERED: HEPARIN SODIUM 1,000 UN/ML (10ML VL) ONE (11:42)
[2023-05-10] MEDS ORDERED: IOPAMIDOL-370 100ML BTL INJ ONE (11:54)
--- NOTE | 2023-05-10 12:03 | P.CARDCATH ---
Description of Procedure: PROCEDURES PERFORMED: Left heart catheterization, bilateral coronary angiography, ultrasound guided arterial access, iFR LAD INDICATION: Chest pain or shortness breath with exertion concerning for angina CONSENT:I have discussed the risks, benefits and alternative therapies for the above-mentioned procedure and for both sedation/analgesia as well as necessary blood product administration, if indicated, as they pertain to this patient. The patient has indicated understanding and acceptance of the risks and procedures discussed. PROCEDURE: After the risks, benefits and alternatives of the above mentioned procedure explained in detail with the patient, informed consent was obtained. Patient was taken to the catheterization lab and prepped and draped in usual fashion. Ultrasound guidance was used to assess for arterial access. 1% lidocaine was used to anesthetize the right radial artery. A 6-Algerian sheath was placed in the right radial artery using modified Seldinger technique and ultrasound guidance. Left coronary angiography was performed with a 5-Algerian JL 3.5 catheter and right coronary angiography was performed with a 5-Algerian JR5 catheter in various views. A 5-Algerian FR5 catheter was inserted into the left ventricle and pressure measurements were obtained. The decision was made to perform iFR of the LAD given some views appeared 50% with large LAD lesion and given her symptoms. Heparin was given. A 0.014 pressure wire was advanced through the FL 3.5 catheter and normalize in the left main. It was then advanced 1 cm distal to the lesion and iFR was performed and was normal at 0.99. The right radial sheath was removed and a TR band was placed with hemostasis achieved. The patient tolerated the procedure well. Patient was transported back to the post catheterization holding area in stable condition. Conscious Sedation: Patient was monitored under the direct supervision of myself for conscious sedation using Versed and fentanyl for a total duration of 18 minutes HEMODYNAMICS: Aorta: 164/81 LV: 157/5, LVEDP 21 SELECTIVE CORONARY ARTERIOGRAPHY: LEFT MAIN: The left main is a large caliber vessel which bifurcates into the LAD and circumflex. There is no significant stenosis. LEFT ANTERIOR DESCENDING CORONARY ARTERY: LAD is a large caliber vessel which wraps around to the apex. There is a proximal LAD 40-50% stenosis at the level of the diagonal 1 branch and otherwise mild luminal irregularities. LEFT CIRCUMFLEX CORONARY ARTERY: Left circumflex is a moderate caliber vessel with a mid circumflex 30% stenosis. RIGHT CORONARY ARTERY: The right coronary artery is a large caliber vessel which gives off a PDA and PLV branch and is the dominant vessel. There are mild luminal irregularities including a 20% mid RCA stenosis. FINAL IMPRESSION: 1. CAD as described above including 30% circumflex, proximal LAD 40-50% and mid RCA 20% stenosis. 2. iFR normal LAD. 3. Mildly elevated left sided filling pressures PLAN: 1. Aggressive risk factor modification per most recent ACC/AHA guidelines. 2. Follow-up in the office in 1-2 weeks.
--- NOTE | 2023-05-10 12:09 | CA ---
Transthoracic Echo Report Name: Margret Mahoney Age: 62 Gender: F : 1960 Exam Date: 05/10/2023 10:25 Exam Location: [facility] Ht (in): 64 Wt (lb): 244 Ordering Physician: Rory Culver DO ([email or web address]) Attending/Referring Phys: Commodity Loan Clerk Marline Bocanegra [facility] Procedure CPT: Indications: lvef Cardiac Hx: Technical Quality: Fair Contrast 1: Total Dose (mL): Contrast 2: Total Dose (mL): MEASUREMENTS (Male / Female) Normal Values 2D ECHO LV Diastolic Diameter PLAX 4.7 cm 4.2 - 5.9 / 3.9 - 5.3 cm LV Systolic Diameter PLAX 3.4 cm IVS Diastolic Thickness 1.0 cm 0.6 - 1.0 / 0.6 - 0.9 cm LVPW Diastolic Thickness 1.0 cm 0.6 - 1.0 / 0.6 - 0.9 cm LV Relative Wall Thickness 0.4 LVOT Diameter 2.0 cm Ascending Aorta Diameter 3.4 cm M-MODE Aortic Root Diameter MM 2.5 cm LA Systolic Diameter MM 4.5 cm LA Ao Ratio MM 1.8 AV Cusp Separation MM 1.9 cm DOPPLER AV Peak Velocity 142.1 cm/s AV Peak Gradient 8.1 mmHg AV Mean Velocity 102.6 cm/s AV Mean Gradient 4.6 mmHg AV Velocity Time Integral 30.5 cm LVOT Peak Velocity 146.3 cm/s LVOT Peak Gradient 8.6 mmHg LVOT Velocity Time Integral 30.5 cm LVOT Stroke Volume 94.2 cm??? LVOT Stroke Volume Index 44.3 ml/m??? LVOT Cardiac Index 2505.4 cm???/min???m??? AV Area Cont Eq vti 3.1 cm??? AV Area Cont Eq pk 3.2 cm??? Mitral E Point Velocity 90.7 cm/s Mitral A Point Velocity 79.9 cm/s Mitral E to A Ratio 1.1 MV Deceleration Time 284.1 ms LV E' Lateral Velocity 7.1 cm/s Mitral E to LV E' Lateral Ratio 12.9 LV E' Septal Velocity 5.5 cm/s Mitral E to LV E' Septal Ratio 16.6 Right Atrial Pressure 8.0 mmHg FINDINGS Left Ventricle Normal Left ventricular size, wall thickness, systolic function with no obvious regional wall motion abnormalities. Left ventricular ejection fraction is estimated at 55-60%. Right Ventricle Mild right ventricular dilatation. Right Atrium Normal right atrial size. Left Atrium Normal left atrial size. Mitral Valve Structurally normal mitral valve. Mitral valve thickened. Mild mitral regurgitation. Aortic Valve Trileaflet aortic valve. No aortic valve stenosis or regurgitation. Tricuspid Valve Structurally normal tricuspid valve. Trace tricuspid regurgitation. Pulmonic Valve Pulmonic valve not well visualized. Pericardium No pericardial effusion. Aorta Normal size aortic root and proximal ascending aorta. CONCLUSIONS Normal LV size and systolic function. Mild mitral and tricuspid regurgitation. No pericardial effusion. No pulmonary hypertension Previewed by: Dr. Mahi Garcia MD (Electronically Signed) Final Date: 10 May 2023 12:09
[2023-05-10 18:27] VITALS: PULSE 58
[2023-05-10 18:28] VITALS: BP 133/63; RESP 14
== END 2023-05-10 17:02 | disposition home or self-care (01) ==
LOC: CATHCVL 09:58
PROVIDERS: ATTEND Internal Medicine
DX: I25.10 Atherosclerotic heart disease of native coronary artery without angina pectoris (principal); I07.1 Rheumatic tricuspid insufficiency; I10 Essential (primary) hypertension; E78.5 Hyperlipidemia, unspecified; F17.210 Nicotine dependence, cigarettes, uncomplicated; Z82.49 Family history of ischemic heart disease and other diseases of the circulatory system; Z79.899 Other long term (current) drug therapy
CPT/HCPCS: 93306; 93458; 93799; 76937; 84132; C1769 ×2; C1894; J2250; J2001; J1644; Q9967

== ENCOUNTER → 2024-07-17 | Outpatient (CLI) | payer MEDICARE, OTHER ==
--- NOTE | 2024-07-18 08:53 | MM ---
Reason for Exam: Screening (asymptomatic). Baseline mammogram. Patient History: Menarche at age 10. First Full-Term at age 17. Postmenopausal. Patient has history of breast feeding. Risk Values: Rosy 5 year model risk: 1.3%. NCI Lifetime model risk: 5.2%. Prior Study Comparison: Patient's first Mammogram. No prior studies available for comparison. Tissue Density: There are scattered areas of fibroglandular density. Findings: Analyzed By CAD. Right breast: There is no suspicious group of microcalcifications or new suspicious mass. Left breast: There is no suspicious group of microcalcifications or new suspicious mass. Overall Assessment: Negative, BI-RAD 1 Management: Screening Mammogram of both breasts in [address] [facility] will attempt to contact patient to return for supplemental views and ultrasound if indicated. Patient should continue monthly self-breast exams. A clinical breast exam by your physician is recommended on an annual basis. This exam should not preclude additional follow-up of suspicious palpable abnormalities. Note on Rosy scores and lifetime risk: 1. A Rosy score greater than 3% is considered moderate risk. If this is the case, consider specialist referral to assess eligibility for a risk reducing agent. 2. If overall lifetime risk for the development of breast cancer is 20% or higher, the patient may qualify for future screening with alternating mammogram and breast MRI. [facility], , 07/18/2024 8:50 AM. Electronically signed and approved by: Ramon Mancuso DO
--- NOTE | 2024-07-28 12:26 | CTL ---
EXAMINATION TYPE: CT Low Dose Lung DATE OF EXAM: 07/17/2024 5:07 PM CLINICAL INDICATION: Female, 63 years old with history of Z12.31 BR CA SCR Z12.2 LUNG CA SCR F17.210 SMOKER; Current every day smoker, .75 ppd x 40+ years , history of tobacco use. COMPARISON: 07/15/2022 TECHNIQUE: Multiple axial non-contrast scans were obtained from approximately the lung apices through the upper abdomen. Coronal and sagittal reformatted images were obtained. Low dose technique was uti lized. MIP were created on a separate workstation and submitted for review. CT DLP: 108 mGycm, Automated exposure control for dose reduction was used. CT Contrast: Contrast used: None Oral contrast used: None FINDINGS: ======== Lack of intravenous contrast and low dose technique limits the evaluation of the vascular and soft ti ssue structures. LUNGS: No evidence of pulmonary fibrosis. No evidence of focal consolidation, pneumothorax or pleural effusion. Centrilobular emphysema changes. Nodules: RUL: None. RML: None. RLL: None. KEVNI: 2 mm series 6 image 24 LLL: None. AIRWAY: Patent and unremarkable. HEART: Size within normal limits.Atherosclerosis of the arterial vasculature. MEDIASTINUM: No gross evidence of adenopathy. VASCULATURE: No aortic aneurysm. MUSCULOSKELETAL: No acute osseous abnormalities SOFT TISSUES/LYMPH NODES: Unremarkable. LOWER NECK: No significant findings. UPPER ABDOMEN: The gallbladder is surgically absent. IMPRESSION: 1. No clinically significant pulmonary nodules. 2. Mild emphysema. CT LUNG RAD AND CT CHEST RECOMMENDATION: Lung-Rad 2 Benign Appearance or Behavior: Continue annual sc reening with LDCT in 12 months. S Modifier (other clinically significant findings): None Recommend smoking cessation (if current smoker), or continuation of smoking cessation (if prior smoke r). Annual screening for lung cancer with low-dose computed tomography is recommended in adults ages 55 to 77 years who have a 30 pack-year smoking history and currently smoke or have quit within the pa st 15 years. Screening should be discontinued once a person has not smoked for 15 years or develops a health problem that substantially limits life expectancy or the ability or willingness to have curat farhan lung surgery. Lung rads 2021 [email or web address] [facility], , 07/28/2024 12:24 PM
== END | disposition home or self-care (01) ==
LOC: RADCTMAIN 16:26
PROVIDERS: ATTEND Family Medicine
DX: Z12.31 Encounter for screening mammogram for malignant neoplasm of breast (principal); Z12.2 Encounter for screening for malignant neoplasm of respiratory organs; R92.323 Mammographic fibroglandular density, bilateral breasts; F17.210 Nicotine dependence, cigarettes, uncomplicated; J43.2 Centrilobular emphysema; Z78.0 Asymptomatic menopausal state; Z85.3 Personal history of malignant neoplasm of breast
CPT/HCPCS: 71271; 77063; 77067

== ENCOUNTER → 2024-07-28 | Outpatient (CLI) | payer MEDICARE ==
[2024-07-28 18:53] LABS: ALT 50 U/L (8-44); AST 99 U/L (13-35); Albumin 3.2 g/dL (3.8-4.9); Albumin/Globulin Ratio 0.67 Ratio (1.60-3.17); Alkaline Phosphatase 199 U/L (41-126); BUN/Creat Ratio 13.43 Ratio (12.00-20.00); Blood Urea Nitrogen 9.4 mg/dL (9.0-27.0); Calcium 8.5 mg/dL (8.7-10.3); Carbon Dioxide 24.7 mmol/L (21.6-31.8); Chloride 109 mmol/L (96-109); Globulin 4.8 g/dL (1.6-3.3); Glucose 101 mg/dL (70-110); Sodium 141 mmol/L (135-145); Total Bilirubin 1.8 mg/dL (0.3-1.2)
[2024-07-28 19:06] LABS: Basophils # (A) 0.06 X 10*3/uL (0.00-0.10); Eosinophils # (A) 0.13 X 10*3/uL (0.04-0.35); Eosinophils % (A) 2.1 %; HCT 39.3 % (37.2-46.3); HGB 13.1 g/dL (12.0-15.0); Immature Platelet Fraction 6.3 % (1.1-6.1); Lymphocytes # (A) 1.67 X 10*3/uL (0.90-5.00); Lymphocytes % (A) 26.6 %; MCH 32.3 pg (27.0-32.0); MCHC 33.3 g/dL (32.0-37.0); MCV 96.8 FL (80.0-97.0); Mean Platelet Volume 11.7 FL (9.5-12.2); Monocytes # (A) 0.56 X 10*3/uL (0.20-1.00); Monocytes % (A) 8.9 %; NRBC Per 100 WBC 0 X 10*3/uL (0.00-0.01); Neutrophils # (A) 3.83 X 10*3/uL (1.80-7.70); Neutrophils % (A) 61.1 %; Platelet Count 86 X 10*3/uL (140-440); RBC 4.06 X 10*6/uL (4.10-5.20); RBC Morphology Normal (Normal); RDW 14.6 % (11.5-14.5); WBC 6.27 X 10*3/uL (4.50-10.00)
[2024-07-31 13:42] LABS: Smooth Muscle Antibody 59 UNITS (<20)
[2024-08-03 07:36] LABS: Albumin 3.13 g/dL (3.80-4.90); Gamma Globulin 3.18 g/dL (0.70-1.50)
== END | disposition home or self-care (01) ==
LOC: LABWHC1 12:33
PROVIDERS: ATTEND Nurse Practitioner Family
DX: R74.8 Abnormal levels of other serum enzymes (principal)
CPT/HCPCS: 36415; 80053; 81596; 82103; 83516; 84165; 85025

== ENCOUNTER → 2024-08-16 | Outpatient (CLI) | payer MEDICARE ==
--- NOTE | 2024-08-16 08:21 | US ---
EXAMINATION TYPE: US abdomen complete DATE OF EXAM: 08/16/2024 COMPARISON: MR 2022, CT 2022, US 2021 CLINICAL INDICATION: Female, 63 years old with history of R74.8 ABNORMAL LEVELS OF OTHER SERUM ENZYME S; Pain that extends across entire abdomen x 1 month. Hx cholecystectomy many years ago. TECHNIQUE: Grayscale and color Doppler imaging of the abdomen was performed. FINDINGS: EXAM MEASUREMENTS: Liver Length: 19.4 cm Gallbladder Wall: Surgically absent CBD: 0.63 cm, color Doppler imaging was utilized to isolate the common bile duct for measurement. Spleen: 12.4 cm Right Kidney: 11.7 x 5.7 x 4.2 cm Left Kidney: 12.1 x 5.7 x 4.3 cm PULPWOOD DEALER NOTES: Exam is limited due to gas. Pancreas: Not well seen. Tail was obscured. Liver: Enlarged, heterogeneous, with increased echogenicity and attenuation. Suspicious masses or cystic structures. Gallbladder: Surgically absent Evidence for sonographic Ellis's sign: No CBD: Appears wnl Spleen: Appears wnl Right Kidney: Renal pelvis appears dilated Left Kidney: Lower pole was gassed out. No hydronephrosis or masses seen Upper IVC: Appears wnl Abd Aorta: Proximal segment appears ectatic= 2.7 cm. Some of the distal aorta was obscured, iliacs w ere obscured. IMPRESSION: 1. Hepatic cirrhosis without evidence of focal mass. 2. Ectatic abdominal aorta. [facility], , 08/16/2024 8:19 AM
== END | disposition home or self-care (01) ==
LOC: RADUSWWP 07:32
PROVIDERS: ATTEND Internal Medicine Gastroenterology
DX: I77.811 Abdominal aortic ectasia (principal); K74.60 Unspecified cirrhosis of liver; R74.8 Abnormal levels of other serum enzymes; Z90.49 Acquired absence of other specified parts of digestive tract
CPT/HCPCS: 76700

== ENCOUNTER → 2024-08-18 | Outpatient (CLI) | payer MEDICARE ==
[2024-08-18 16:21] LABS: African American GFR (CKD) >90 (>60 ml/min/1.73 sqM); Blood Urea Nitrogen 9 mg/dL (7-17); Non-African American GFR(CKD) 90 (>60 ml/min/1.73 sqM)
--- NOTE | 2024-08-20 11:38 | CT ---
EXAMINATION TYPE: CT abdomen pelvis w con DATE OF EXAM: 08/18/2024 5:22 PM COMPARISON: None. CLINICAL INDICATION: Female, 63 years old with history of R10.84 Generalized abdominal pain, Generali zed abdominal pain x couple months. Hx of bladder cancer. TECHNIQUE: Axial images were obtained from above the diaphragm to the pubic rami in the axial plane a t 5 mm thick sections. Reconstructed images are reviewed on the computer in the coronal plane. CONTRAST: 100ml mL of Isovue 300. Study performed without Oral Contrast DLP: 1752.2 mGycm, Automated exposure control for dose reduction was used. FINDINGS: Limited CT sections are obtained the lung bases. The lung bases are clear. CT ABDOMEN: Liver: Normal Spleen: Normal Pancreas: Normal Adrenal glands: The adrenal glands are normal. Gallbladder: Absent Kidneys: No masses are evident. No hydronephrosis is present. No cysts are present. Delayed images were obtained through the kidneys, which remain unremarkable. Aorta: Vascular calcification is within the aorta. Inferior vena cava: Normal. CT PELVIS: Loops of bowel within the abdomen and pelvis are normal. This study is without neural contrast li miting solid lesion. Few diverticuli within the sigmoid colon. Appendix: Normal as visualized. Urinary bladder: Normal. No obvious wall thickening or mass is identified Genitourinary structures: Uterus appears normal. Adnexa are Normal Osseous structures: No suspicious lytic or sclerotic lesions. IMPRESSION: 1. Diverticulosis without acute diverticulitis. 2. No suspicious changes to suggest metastatic disease. [facility], , 08/20/2024 11:35 AM
== END | disposition home or self-care (01) ==
LOC: RADCTMAIN 15:26
PROVIDERS: ATTEND Family Medicine
DX: K57.30 Diverticulosis of large intestine without perforation or abscess without bleeding (principal); R10.84 Generalized abdominal pain
CPT/HCPCS: 82565; 84520; 74177; 36415; Q9967

== ENCOUNTER 2024-10-11 07:49 | Day surgery (SDC) | payer MEDICARE ==
[2024-10-11] MEDS ORDERED: ALPRAZolam 0.5 MG TAB PO PRN (08:14)
[2024-10-11 09:08] LABS: Mean Platelet Volume 7.2
[2024-10-11 09:18] LABS: Platelet Count 97 k/uL (150-450)
[2024-10-11 09:19] VITALS: TEMP 98
[2024-10-11 09:20] LABS: INR 1.5 (<1.2); Prothrombin Time 15.9 sec (10.0-12.5)
[2024-10-11] MEDS: HYDROmorphone 0.5 MG/0.5 ML SYRINGE IVP PRN (09:52)
--- NOTE | 2024-10-11 10:39 | US ---
EXAMINATION TYPE: US biopsy liver DATE OF EXAM: 10/11/2024 9:46 AM COMPARISON: 08/18/2024 CLINICAL INDICATION:Female, 63 years old with history of K74.60 UCSPECIFIED CIRRHOSIS OF THE LIVER; TECHNIQUE: Ultrasound-guided percutaneous biopsy of the liver using coaxial method. One or more CT dose reductio n strategies were utilized during this examination. FINDINGS: The procedure was explained to the patient including risks of bleeding, bruising, infection, damage t o nearby organs and need for additional therapy including potential surgery. All questions were answ ered and consent was obtained. The previous studies were reviewed. The patient was placed on the ultrasound suite. In the supine po sition. The overlying skin was marked and prepped using sterile method. Timeout was taken per protoc ol. Following administration of local anesthesia a 17 gauge coaxial needle was introduced on the righ t hepatic lobe. The coaxial needle tip was directed into the liver with ultrasound guidance. 2 x 18 gauge coaxial biopsies were then obtained. Following the procedure the needle was removed and ster ile dressing was applied to the percutaneous site. Post biopsy imaging demonstrated no evidence of h emorrhage. Patient was taken for postprocedure observation in stable condition. Nodular contour to liver suggestive of underlying hepatocellular disease such as cirrhosis. IMPRESSIONS: 1. Status post percutaneous ultrasound-guided brain from liver biopsy as described above. Pathology results pending. 2. Nodular contour to liver suggestive of underlying hepatocellular disease such as cirrhosis. [facility], , 10/11/2024 10:36 AM
[2024-10-11 12:11] VITALS: RESP 16
[2024-10-11 12:16] VITALS: PULSE 70
[2024-10-11] MEDS: HYDROcodone/APAP 5-325MG 1 EACH TAB PO PRN (12:29)
[2024-10-11 15:03] VITALS: BP 139/67
== END 2024-10-11 13:28 | disposition home or self-care (01) ==
LOC: RADPROMAIN 07:49
PROVIDERS: ATTEND Internal Medicine Gastroenterology
DX: K74.00 Hepatic fibrosis, unspecified (principal); K74.60 Unspecified cirrhosis of liver; K73.2 Chronic active hepatitis, not elsewhere classified
CPT/HCPCS: 85049; 85610; 88313; 88307; 36415; 47000; 76942; J1171

== ENCOUNTER 2024-12-19 05:36 | Day surgery (SDC) | payer MEDICARE, OTHER ==
[2024-12-19] MEDS ORDERED: LACTATED RINGERS 1,000 ML IV SCH (05:54)
[2024-12-19] MEDS: IV FLUID CONTINUATION 1,000 ML IV ONE (06:40)
[2024-12-19 06:42] VITALS: TEMP 97.4
[2024-12-19] MEDS ORDERED: LIDOCAINE 2% (PF) 20 MG/ML 5 ML VIAL ONE (07:00)
[2024-12-19] MEDS ORDERED: PROPOFOL 10 MG/ML 20 ML VIAL IV ONE (07:00)
--- NOTE | 2024-12-19 07:26 | P.PCN ---
Date of Procedure: 12/19/24 Procedure(s) Performed: Brief history: Patient is a pleasant 64-year-old white female scheduled for an elective upper endoscopy as well as colonoscopy as a part of evaluation of history of liver cirrhosis/screening for esophageal varices and screening for colon cancer Procedure performed: Esophagogastroduodenoscopy with biopsy Colonoscopy with biopsy Preoperative diagnosis: History of liver cirrhosis/screening for esophageal varices Screening for colon cancer Anesthesia: MAC Procedure: After informed consent was obtained from the patient was brought into the endoscopy unit and IV sedation was administered by anesthesia under continuous monitoring. Initially upper endoscopy was done. The Olympus GF 160 video endoscope was inserted inserted into the mouth and esophagus intubated without any difficulty and was gradually advanced into the stomach and duodenum and carefully examined. The bulb and second part of the duodenum appeared normal. The scope was then withdrawn into the stomach adequately insufflated with air and upon careful examination the antrum and body, cardia and fundus had diffuse gastritis and changes consistent with portal gastropathy and biopsies were done from this area. No gastric varices identified. Al. The scope was then withdrawn into the esophagus. The GE junction was located at 40 cm to the incisors. It appeared regular with no erythema erosions or ulcerations. There is whitish plaques noted throughout the entire esophagus consistent with Jacqueline esophagitis and biopsies were done from this area. Patient tolerated the procedure well. At this time the patient continued to remain sedation. Initial digital rectal examination was normal. Olympus CF 160 video colonoscope was then inserted into the rectum and gradually advanced to the cecum without any difficulty. Careful examination was performed as the scope was gradually being withdrawn. The prep was excellent. The cecum, ascending colon, appeared normal. The transverse colon there was a 3 mm polyp removed by cold biopsy. The descending colon there was a 4 mm polyp removed by cold biopsy. Rest of the transverse colon, descending colon, sigmoid colon and rectum appeared normal. In the rectum there was a 5 mm polyp that was removed by cold biopsy. Retroflexion was performed in the rectum and no lesions were noted. Patient tolerated the procedure well. Impression: 1. Upper endoscopy revealed gastritis/portal hypertensive gastropathy but no evidence of gastric or esophageal varices. Evidence of Jacqueline esophagitis 2. Colonoscopy revealed: 3 mm transverse colon polyp status post cold biopsy 4 mm descending colon polyp status post cold biopsy 5 mm rectal polyp status post cold biopsy Recommendations: Findings of this examination were discussed with the patient as well as her family. She was advised to follow-up with the biopsy results. If the biopsy reveals adenoma she can have repeat colonoscopy in 3 years. Repeat upper endoscopy in 3 years to evaluate for esophageal varices.
[2024-12-19 07:44] VITALS: BP 137/83; PULSE 83; RESP 14
== END 2024-12-19 08:32 | disposition home or self-care (01) ==
LOC: ORWHC2ENDO 05:36
PROVIDERS: ATTEND Internal Medicine Gastroenterology
DX: Z12.11 Encounter for screening for malignant neoplasm of colon (principal); D12.3 Benign neoplasm of transverse colon; D12.4 Benign neoplasm of descending colon; K62.1 Rectal polyp; K74.60 Unspecified cirrhosis of liver; K76.6 Portal hypertension; K31.89 Other diseases of stomach and duodenum; K29.50 Unspecified chronic gastritis without bleeding; B37.81 Candidal esophagitis; I48.91 Unspecified atrial fibrillation; I11.0 Hypertensive heart disease with heart failure; I50.9 Heart failure, unspecified; J45.909 Unspecified asthma, uncomplicated; Z79.51 Long term (current) use of inhaled steroids; Z79.899 Other long term (current) drug therapy; Z86.73 Personal history of transient ischemic attack (TIA), and cerebral infarction without residual deficits; Z85.51 Personal history of malignant neoplasm of bladder; Z88.2 Allergy status to sulfonamides; Z91.040 Latex allergy status
CPT/HCPCS: 88305; 45380; 43239; J2704; J2003

== ENCOUNTER → 2025-04-14 | Outpatient (CLI) | payer MEDICARE, OTHER ==
[2025-04-15 01:08] LABS: ALT 92 U/L (8-44); AST 198 U/L (13-35); Albumin 2.5 g/dL (3.8-4.9); Albumin/Globulin Ratio 0.54 Ratio (1.60-3.17); Alkaline Phosphatase 182 U/L (41-126); Anion Gap 9.30 mmol/L (4.00-12.00); BUN/Creat Ratio 10.89 Ratio (12.00-20.00); Blood Urea Nitrogen 9.8 mg/dL (9.0-27.0); Calcium 8.0 mg/dL (8.7-10.3); Carbon Dioxide 19.7 mmol/L (21.6-31.8); Chloride 108 mmol/L (96-109); Globulin 4.6 g/dL (1.6-3.3); Glucose 109 mg/dL (70-110); Potassium 3.8 mmol/L (3.5-5.5); Sodium 137 mmol/L (135-145); Total Protein 7.1 g/dL (6.2-8.2)
== END | disposition home or self-care (01) ==
LOC: LABMAIN 17:51
PROVIDERS: ATTEND Internal Medicine Gastroenterology
DX: K74.60 Unspecified cirrhosis of liver (principal); R18.8 Other ascites
CPT/HCPCS: 80053